=== PATIENT | female | born 1990 | race Asian ===

== ENCOUNTER 2017-07-04 10:51 | Emergency (ER) | payer OTHER ==
[~2017-07-04] VITALS: Ht 160 cm; Wt 59.0 kg
[2017-07-05 09:13] LABS: HBSAG SCREEN Negative (Negative); HCV ANTIBODY <0.1 (0.0-0.9)
== END 2017-07-04 13:17 | disposition home or self-care (01) ==
LOC: ER 10:51
PROVIDERS: Physician Assistant
DX: S61.232A Puncture wound without foreign body of right middle finger without damage to nail, initial encounter (principal); W46.0XXA Contact with hypodermic needle, initial encounter; Y99.0 Civilian activity done for income or pay
CPT/HCPCS: 84460; 86703; 86803; 87340; 99283